=== PATIENT | female | born 1980 | race Caucasian/White ===

== ENCOUNTER 2016-05-01 21:03 | Emergency (ER) | payer BC, OTHER ==
[2016-05-01] MEDS ORDERED: PYRIDOXINE 100 MG TABLET PO STA (22:02)
[2016-05-01] MEDS ORDERED: DOXYLAMINE 25 MG TABLET PO PRN (22:02)
[2016-05-01] MEDS ORDERED: METOCLOPRAMIDE 10 MG TABLET PO STA (22:23)
[2016-05-01] MEDS ORDERED: METOCLOPRAMIDE 10 MG TABLET ONE (22:24)
== END 2016-05-01 22:34 | disposition home or self-care (01) ==
DX: O26.891 Other specified pregnancy related conditions, first trimester (principal); R11.2 Nausea with vomiting, unspecified; O99.331 Smoking (tobacco) complicating pregnancy, first trimester; Z3A.01 Less than 8 weeks gestation of pregnancy; G47.12 Idiopathic hypersomnia without long sleep time
CPT/HCPCS: 81025; 99283; 99284; A9270

== ENCOUNTER 2016-05-06 20:03 | Emergency (ER) | payer BC, OTHER ==
[2016-05-06] MEDS ORDERED: SODIUM CHLORIDE 0.9% 1,000 ML IV ONE ×2 (20:49→20:52)
[2016-05-06] MEDS ORDERED: METOCLOPRAMIDE 10 MG/2 ML VIAL IVP STA (20:49)
[2016-05-06] MEDS ORDERED: METOCLOPRAMIDE 10 MG/2 ML VIAL IVP ONE (20:52)
== END 2016-05-06 22:06 | disposition home or self-care (01) ==
DX: O21.0 Mild hyperemesis gravidarum (principal); O99.89 Other specified diseases and conditions complicating pregnancy, childbirth and the puerperium; F13.239 Sedative, hypnotic or anxiolytic dependence with withdrawal, unspecified; Z3A.01 Less than 8 weeks gestation of pregnancy

== ENCOUNTER 2016-05-24 11:14 | Outpatient (CLI) | payer BC, OTHER | END 2016-05-24 11:15 | disposition home or self-care (01) | DX: Z11.3 Encounter for screening for infections with a predominantly sexual mode of transmission (principal) ==

== ENCOUNTER 2016-05-31 08:00 | Outpatient (CLI) | payer BC, OTHER | END 2016-05-31 08:01 | disposition home or self-care (01) | DX: Z36 Encounter for antenatal screening of mother (principal) ==

== ENCOUNTER 2016-08-05 13:19 | Outpatient (CLI) | payer BC, OTHER | END 2016-08-05 13:20 | disposition home or self-care (01) | LOC: SC 13:19 | PROVIDERS: ATTEND Internal Medicine Pulmonary Disease | DX: G47.12 Idiopathic hypersomnia without long sleep time (principal) | CPT/HCPCS: 99203; 99212 ==